=== PATIENT | male | born 1955 | race Caucasian/White ===

== ENCOUNTER 2017-10-01 15:03 | Emergency (ER) | payer MEDICAID, MEDICARE ==
[~2017-10-01] VITALS: Ht 193 cm; Wt 88.3 kg
[~2017-10-01 15:03] MED LIST: CLIN1CAP6 PO; Hydrocodone/Acetaminophen PO
[2017-10-01 15:09] VITALS: BP 141/78; PULSE 76; RESP 16; TEMP 97.5; O2SAT 100
[2017-10-01 15:22] VITALS: O2SAT 100
--- NOTE | 2017-10-01 15:26 | PD ---
HPI Chief Complaint: Respiratory Symptoms Time Seen by Provider: 15:15 Travel History International Travel<30 days: No Contact w/Intl Traveler<30days: No Traveled to known affect area: No History of Present Illness HPI The patient is a 61 year-old male who presents to the emergency department for 2 day history of shortness of breath. The patient feels like he is having difficulty taking a deep breath and catching his breath. He does note a dry and mostly nonproductive cough, nasal congestion, and mild loss of his voice. He does have a history of tobacco use, quit smoking 7 years ago. He denies any history of asthma, chronic bronchitis, COPD, congestive heart failure, or known coronary artery disease. Symptoms have been worse over the last 2 days there are no current exacerbating or alleviating factors. He denies any chest pain or chest tightness. He denies any recent travel, hospitalizations, surgeries, or previous history of DVT/PE. 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 PFSH Past Medical History Arthritis: No Asthma: No Autoimmune Disease: No Blood Disorders: No Anxiety: No Depression: No Heart Rhythm Problems: No Cancer: Yes (bladder cancer) Cardiovascular Problems: No High Cholesterol: No Chemotherapy: No Chest Pain: No Congestive Heart Failure: No COPD: No Cerebrovascular Accident: No Diabetes: No Endocrine: No GERD: No Glaucoma: No Genitourinary: No Headaches: No Hepatitis: No Hiatal Hernia: No Hypertension: No Immune Disorder: No Kidney Stones: No Musculoskeletal: No Psychiatric: No Reproductive: No Respiratory: No Migraines: No Myocardial Infarction: No Radiation Therapy: No Renal Failure: No Seizures: Yes (with brain aneurysm ) Sickle Cell Disease: No Sleep Apnea: No Thyroid Disease: No Ulcer: No Past Surgical History Abdominal Surgery: No AICD: No Appendectomy: No Arteriovenous Shunt: No Cardiac Surgery: No Cholecystectomy: No Ear Surgery: No Endocrine Surgery: No Eye Surgery: No Genitourinary Surgery: No Gynecologic Surgery: No Insulin Pump: No Joint Replacement: No Neurologic Surgery: Yes (BRAIN ANERRYSM METAL CLIP) Oral Surgery: Yes (ROOT CANAL) Pacemaker: No Thoracic Surgery: No Other Surgery: Yes Social History Alcohol Use: No Tobacco Use: No (QUIT 2009) Substance Use: No Allergies-Medications (Allergen,Severity, Reaction): Coded Allergies: No Known Allergies (Unverified Adverse Reaction, Unknown, 10/01/17) Reported Meds & Prescriptions Reported Meds & Active Scripts Active No Active Prescriptions or Reported Medications Review of Systems Except as stated in HPI: all other systems reviewed are Neg General / Constitutional: No: Fever HENT: Positive: Congestion, No: Lightheadedness Cardiovascular: No: Chest Pain or Discomfort Respiratory: Positive: Cough, Shortness of Breath, Wheezing Gastrointestinal: No: Nausea, Vomiting, Abdominal Pain Musculoskeletal: No: Edema Physical Exam Narrative GENERAL: Awake, alert, pleasant [id number] male who appears his stated age and is in no acute respiratory distress. SKIN: Focused skin assessment warm/dry. HEAD: Atraumatic. Normocephalic. EYES: Pupils equal and round. No scleral icterus. No injection or drainage. ENT: No nasal bleeding or discharge. Cobblestoning but no erythema or exudate. NECK: Trachea midline. No JVD. CARDIOVASCULAR: Regular rate and rhythm. No murmur appreciated. RESPIRATORY: No accessory muscle use. Slight prolonged expiratory phase with wheezes noted. GASTROINTESTINAL: Abdomen soft, non-tender, nondistended. MUSCULOSKELETAL: No obvious deformities. No clubbing. No cyanosis. No edema. Calves are soft bilaterally. Negative Homans sign. NEUROLOGICAL: Awake and alert. No obvious cranial nerve deficits. Motor grossly within normal limits. Normal speech. PSYCHIATRIC: Appropriate mood and affect; insight and judgment normal. Data Data Last Documented VS Vital Signs Date Time Temp Pulse Resp B/P (MAP) Pulse Ox O2 Delivery O2 Flow Rate FiO2 10/01/17 15:22 18 100 Room Air 10/01/17 15:09 97.5 76 141/78 (99) Orders Orders Complete Blood Count With Diff (10/01/17 15:20) Comprehensive Metabolic Panel (10/01/17 15:20) B-Type Natriuretic Peptide (10/01/17 15:20) Magnesium (Mg) (10/01/17 15:20) Ckmb (Isoenzyme) Profile (10/01/17 15:20) Troponin I (10/01/17 15:20) Influenzae A/B Antigen (10/01/17 15:20) Iv Access Insert/Monitor (10/01/17 15:20) Electrocardiogram (10/01/17 15:20) Ecg Monitoring (10/01/17 15:20) Oximetry (10/01/17 15:20) Oxygen Administration (10/01/17 15:20) Chest, Single Ap (10/01/17 15:20) Sodium Chloride 0.9% Flush (Ns Flush) (10/01/17 15:30) Methylprednisolone So Succ Inj (Solumedr (10/01/17 15:30) Albuterol-Ipratropium Neb (Duoneb Neb) (10/01/17 15:30) CKMB (10/01/17 15:45) CKMB% (10/01/17 15:45) Labs Laboratory Tests Test 10/01/17 15:45 White Blood Count 6.1 TH/MM3 Red Blood Count 5.44 MIL/MM3 Hemoglobin 15.0 GM/DL Hematocrit 46.3 % Mean Corpuscular Volume 85.2 FL Mean Corpuscular Hemoglobin 27.6 PG Mean Corpuscular Hemoglobin Concent 32.4 % Red Cell Distribution Width 12.9 % Platelet Count 237 TH/MM3 Mean Platelet Volume 7.9 FL Neutrophils (%) (Auto) 63.3 % Lymphocytes (%) (Auto) 26.2 % Monocytes (%) (Auto) 6.4 % Eosinophils (%) (Auto) 3.0 % Basophils (%) (Auto) 1.1 % Neutrophils # (Auto) 3.8 TH/MM3 Lymphocytes # (Auto) 1.6 TH/MM3 Monocytes # (Auto) 0.4 TH/MM3 Eosinophils # (Auto) 0.2 TH/MM3 Basophils # (Auto) 0.1 TH/MM3 CBC Comment DIFF FINAL Differential Comment Blood Urea Nitrogen 25 MG/DL Creatinine 1.00 MG/DL Random Glucose 88 MG/DL Total Protein 7.5 GM/DL Albumin 3.5 GM/DL Calcium Level 8.7 MG/DL Magnesium Level 2.3 MG/DL Alkaline Phosphatase 72 U/L Aspartate Amino Transf (AST/SGOT) 33 U/L Alanine Aminotransferase (ALT/SGPT) 47 U/L Total Bilirubin 0.6 MG/DL Sodium Level 140 MEQ/L Potassium Level 4.4 MEQ/L Chloride Level 107 MEQ/L Carbon Dioxide Level 27.3 MEQ/L Anion Gap 6 MEQ/L Estimat Glomerular Filtration Rate 76 ML/MIN Total Creatine Kinase 106 U/L Creatine Kinase MB 1.3 NG/ML Troponin I LESS THAN 0.02 NG/ML B-Type Natriuretic Peptide 3 PG/ML MDM Medical Decision Making Medical Screen Exam Complete: Yes Emergency Medical Condition: Yes Medical Record Reviewed: Yes Interpretation(s) EKG reveals sinus rhythm with sinus arrhythmia. Inverted T-wave in lead 3. Last Impressions Chest X-Ray 10/01/17 1520 Signed Impressions: Service Date/Time: September 16:01 - CONCLUSION: Normal examination. Popeye Hernandez MD Laboratory Tests Test 10/01/17 15:45 White Blood Count 6.1 TH/MM3 Red Blood Count 5.44 MIL/MM3 Hemoglobin 15.0 GM/DL Hematocrit 46.3 % Mean Corpuscular Volume 85.2 FL Mean Corpuscular Hemoglobin 27.6 PG Mean Corpuscular Hemoglobin Concent 32.4 % Red Cell Distribution Width 12.9 % Platelet Count 237 TH/MM3 Mean Platelet Volume 7.9 FL Neutrophils (%) (Auto) 63.3 % Lymphocytes (%) (Auto) 26.2 % Monocytes (%) (Auto) 6.4 % Eosinophils (%) (Auto) 3.0 % Basophils (%) (Auto) 1.1 % Neutrophils # (Auto) 3.8 TH/MM3 Lymphocytes # (Auto) 1.6 TH/MM3 Monocytes # (Auto) 0.4 TH/MM3 Eosinophils # (Auto) 0.2 TH/MM3 Basophils # (Auto) 0.1 TH/MM3 CBC Comment DIFF FINAL Differential Comment Blood Urea Nitrogen 25 MG/DL Creatinine 1.00 MG/DL Random Glucose 88 MG/DL Total Protein 7.5 GM/DL Albumin 3.5 GM/DL Calcium Level 8.7 MG/DL Magnesium Level 2.3 MG/DL Alkaline Phosphatase 72 U/L Aspartate Amino Transf (AST/SGOT) 33 U/L Alanine Aminotransferase (ALT/SGPT) 47 U/L Total Bilirubin 0.6 MG/DL Sodium Level 140 MEQ/L Potassium Level 4.4 MEQ/L Chloride Level 107 MEQ/L Carbon Dioxide Level 27.3 MEQ/L Anion Gap 6 MEQ/L Estimat Glomerular Filtration Rate 76 ML/MIN Total Creatine Kinase 106 U/L Creatine Kinase MB 1.3 NG/ML Troponin I LESS THAN 0.02 NG/ML B-Type Natriuretic Peptide 3 PG/ML Differential Diagnosis Differential diagnosis includes URI, bronchitis, pneumonia, pleural effusion, pulmonary edema, congestive heart failure, cardiomyopathy, ACS, pulmonary embolism. Narrative Course IV was established, labs are drawn and sent, and the patient was placed on cardiac telemetry monitoring and continuous pulse oximetry monitoring. EKG was ordered and interpreted. Chest x-ray was obtained. The patient was administered Solu-Medrol 125 mg intravenously and 2 DuoNeb's. Influenza screen was sent to lab. EKG was unremarkable. Influenza screen is negative. White count is within normal limits. BNP is 3. Troponin is less than 0.02. The patient was reevaluated, symptoms did improve. Appears to be bronchospasm with bronchitis, the patient will be treated with prednisone, albuterol however, and Zithromax. He will be provided a copy of his x-ray results and lab results at discharge. He is advised to follow-up with his primary physician and return if symptoms worsen or progress. Diagnosis Primary Impression: Bronchitis Patient Instructions: General Instructions Additional Instructions: Please provide the patient copy of his x-ray results and lab results at discharge. Follow-up with your primary physician. Medications as directed. Return if symptoms worsen or progress. Med/Other Pt SpecificInfo: Prescription(s) given Scripts Azithromycin (Zithromax Z-Fritz) 250 Mg Dspk 250 MG PO DIRECTED for Infection, #1 DSPK 0 Refills 500 MG (2 tabs) day 1, then 1 tab days 2-5. Prov: Tono Elise MD 10/01/17 Albuterol 18 GM Inh (Ventolin Hfa 18 GM Inh) 90 Mcg/Act Aer 2 PUFF INH Q4H Y for SHORTNESS OF BREATH, #1 INHALER 0 Refills Prov: Tono Elise MD 10/01/17 Prednisone (Prednisone) 20 Mg Tab 40 MG PO DAILY for 5 Days, #10 TAB 0 Refills Take 40 mg (2 tablets) daily for 5 days Prov: Tono Elise MD 10/01/17 Disposition: 01 DISCHARGE HOME Condition: Stable Tono Elise MD Oct 01, 2017 15:25
[2017-10-01] MEDS: RESP: ALBUTEROL 2.5 MG/IPRATROPIUM 0.5 MG NEB (SCH) INH ×2 (15:28→15:29)
[2017-10-01] MEDS ORDERED: SODIUM CHLORIDE 0.9% FLUSH 10 ML FLUSH IVF PRN (15:30)
[2017-10-01] MEDS ORDERED: methylPREDNISolone SOD SUCC 125 MG/2 ML VIAL IV PUSH ONE (15:30)
[2017-10-01 15:55] LABS: AUTOMATED NEUTROPHIL # 3.8 TH/MM3 (1.8-7.7); BASOPHIL # 0.1 TH/MM3 (0-0.2); BASOPHIL % 1.1 % (0.0-2.0); EOSINOPHIL # 0.2 TH/MM3 (0-0.4); HEMATOCRIT 46.3 % (39.0-51.0); LYMPH % 26.2 % (9.0-44.0); LYMPHOCYTE # 1.6 TH/MM3 (1.0-4.8); MEAN CELL VOLUME 85.2 FL (80.0-100.0); MEAN CORPUSCULAR HEMOGLOBIN 27.6 PG (27.0-34.0); MEAN CORPUSCULAR HGB CONC 32.4 % (32.0-36.0); MEAN PLATELET VOLUME 7.9 FL (7.0-11.0); MONO % 6.4 % (0.0-8.0); MONOCYTE # 0.4 TH/MM3 (0-0.9); NEUT % 63.3 % (16.0-70.0); PLATELET COUNT 237 TH/MM3 (150-450); RED BLOOD COUNT 5.44 MIL/MM3 (4.50-5.90); RED CELL DISTRIBUTION WIDTH 12.9 % (11.6-17.2); WHITE BLOOD COUNT 6.1 TH/MM3 (4.0-11.0)
[2017-10-01 16:11] LABS: CHLORIDE 107 MEQ/L (98-107); SODIUM (NA) 140 MEQ/L (136-145)
[2017-10-01 16:14] LABS: ALBUMIN 3.5 GM/DL (3.4-5.0); BICARBONATE 27.3 MEQ/L (21.0-32.0); CALCIUM 8.7 MG/DL (8.5-10.1); GLUCOSE,RANDOM 88 MG/DL (74-106); MAGNESIUM 2.3 MG/DL (1.5-2.5)
[2017-10-01 16:15] LABS: BLOOD UREA NITROGEN 25 MG/DL (7-18)
[2017-10-01 16:17] LABS: ALT (GPT) 47 U/L (12-78); AST (GOT) 33 U/L (15-37)
[2017-10-01 16:18] LABS: GLOMERULAR FILTRATION RATE 76 ML/MIN (>89)
[2017-10-01 16:19] LABS: TOTAL BILIRUBIN ADULT 0.6 MG/DL (0.2-1.0); TOTAL PROTEIN 7.5 GM/DL (6.4-8.2)
[2017-10-01 16:20] LABS: ALKALINE PHOSPHATASE 72 U/L (45-117)
[2017-10-01 16:23] LABS: TROPONIN I LESS THAN 0.02 NG/ML (0.02-0.05)
--- NOTE | 2017-10-01 16:23 | RADRPT ---
EXAM DATE/TIME: 10/01/2017 16:01 [facility] COMPARISON: No previous studies available for comparison. INDICATIONS : Short of breath since yesterday. MEDICAL HISTORY : None. SURGICAL HISTORY : None. ENCOUNTER: Initial ACUITY: 2 days PAIN SCORE: 0/10 LOCATION: Bilateral chest FINDINGS: A single view of the chest demonstrates the lungs to be symmetrically aerated without evidence of mas s, infiltrate or effusion. The cardiomediastinal contours are unremarkable. Osseous structures are intact. CONCLUSION: Normal examination. Popeye Hernandez MD on October 01, 2017 at 16:21 Board Certified Radiologist. This report was verified electronically.
[2017-10-01] MEDS ORDERED: PRED20 PO (16:43)
[2017-10-01] MEDS ORDERED: ZITHTAB PO (16:43)
[2017-10-01] MEDS ORDERED: VENTAER INH (16:43)
[2017-10-01 17:03] VITALS: BP 146/74
--- NOTE | 2017-10-01 19:46 | EKG ---
Date Performed: 10/01/2017 Time Performed: 15:34:31 PTAGE: 61 years EKG: Baseline artifact present Sinus rhythm WITH SINUS ARRHYTHMIA NORMAL ECG Compared to prior electrocardiogram, rate has increased PREVIOUS TRACING : 01/11/2016 07.14 DOCTOR: David Almazan Interpretating Date/Time 10/01/2017 19:45:11
== END 2017-10-01 17:05 | disposition home or self-care (01) ==
LOC: PHED 15:03
DX: J40 Bronchitis, not specified as acute or chronic (principal); I49.8 Other specified cardiac arrhythmias; Z85.51 Personal history of malignant neoplasm of bladder; Z87.891 Personal history of nicotine dependence
CPT/HCPCS: 71045; 80053; 82550; 82552; 83735; 83880; 84484; 85025; 87804; 93005; 94640; 94664; 96374; 99285; J2930